=== PATIENT | male | born 1985 | race Caucasian/White ===

== ENCOUNTER 2016-08-24 16:14 | Inpatient (IN) | payer OTHER ==
--- NOTE | ~2016-08-24 | PN ---
Unit #: [id number] #: [id number] Patient: ULICES MALLOY [id number] [facility] [address] [place] [address] [id number] I MR#: [id number] NAME: ULICES MALLOY ROOM: P208 Age: 31 Sex: M Admission Date: 08/24/2016 : 1985 Attending Physician: Christy Lewis M.D. Admitting Physician: Madison Montana PROGRESS NOTES DATE OF SERVICE: 08/27/2016 SUBJECTIVE Mr. Malloy is a 31-year-old white male, who was seen today and chart was reviewed, and the case was discussed with the staff. He has been anxious and withdrawn and rather seclusive to himself. Meanwhile, he has been cooperative with the treatment recommendations and has been taking the medications and tolerating them . MENTAL STATUS EXAMINATION Young white male, who was casually dressed with fair personal hygiene, appears to be in no acute distress or discomfort. He was awake and alert on interaction with intact orientation. His mood was anxious with a congruent affect. He denies any suicidal or homicidal ideation. His insight and judgment remain slightly impaired. TREATMENT PLAN 1. treatment protocol. We will monitor his response to the medications and make further adjustments as needed. 2. We will continue to follow up. Dictated by... Madison Montana/darren TD: 08/27/2016 13:34 JOB #: [id number] [facility] PROGRESS NOTES Page 1 of 1 X Christy Lewis MD PROGRESS NOTE
--- NOTE | ~2016-08-24 | PN ---
Unit #: [id number] #: [id number] Patient: ULICES MALLOY [id number] [facility] [address] [place] [address] [id number] MR#: [id number] NAME: ULICES MALLOY ROOM: P208 Age: 31 Sex: M Admission Date: 08/24/2016 : 1985 Attending Physician: Christy Lewis M.D. Admitting Physician: Madison [place] NOTES DATE OF SERVICE: 08/26/2016 SUBJECTIVE Mr. Malloy is a 31-year-old white male who was seen today and chart was reviewed, and the case was discussed with the staff. He has been anxious and withdrawn and rather seclusive to himself. Meanwhile, he has been cooperative with the treatment recommendations and has been taking the medications and tolerating them fairly well. MENTAL STATUS EXAMINATION Young white male, who was casually dressed with fair personal hygiene, appears to be in no acute distress or discomfort. He was awake and alert on interaction with intact orientation. His mood was anxious with a congruent affect. He denies any suicidal or homicidal ideation. His insight and judgment remain slightly impaired. TREATMENT PLAN We will continue him on his treatment protocol. We will monitor his response to medications and make further adjustments as needed. Dictated by... Madison Montana/marquisl TD: 08/28/2016 02:54 JOB #: [id number] [facility] PROGRESS NOTES Page 1 of 1 X Christy Lewis MD PROGRESS NOTE
--- NOTE | ~2016-08-24 | PN ---
Unit #: [id number] #: [id number] Patient: ULICES MALLOY [id number] [facility] [address] [place] [address] [id number] I MR#: [id number] NAME: ULICES MALLOY ROOM: P208 Age: 31 Sex: M Admission Date: 08/24/2016 : 1985 Attending Physician: Christy Lewis M.D. Admitting Physician: Christy Lewis M.D. Primary Care Physician: Primary Care Physician Ronit EDWARDS PROGRESS NOTES DATE August 29, 2016 DISCUSSION Mr. Malloy is a 31-year-old white male, who was seen today and chart was reviewed and the case was discussed with the staff. He has been doing fairly well and appears to be coming out of the detox without any complications, but still being anxious and withdrawn, unkept, disheveled, and rather seclusive to himself. However, he has been cooperative with the treatment recommendations and he has been taking the medications and tolerating them fairly well with no reported side effects. MENTAL STATUS EXAMINATION Young white male, who was casually dressed with fair personal hygiene and appears to be in no acute distress or discomfort. He was awake and alert on interaction with intact orientation. His mood is anxious with a congruent affect. He denies any suicidal or homicidal ideations. His insight and judgment remain slightly impaired. TREATMENT PLAN 1. We will continue him on his current treatment protocol, and will monitor his response to the medications, and make further adjustments as needed. 2. We will continue to followup. Dictated by... Madison Montana/lien TD: 08/30/2016 10:39 JOB #: [id number] Unit #: [id number] #: [id number] Patient: ULICES MALLOY PROGRESS NOTES Page 1 of 1 X Christy Lewis MD PROGRESS NOTE
--- NOTE | ~2016-08-24 | PN ---
Unit #: [id number] #: [id number] Patient: ULICES MALLOY [id number] [facility] [address] [place] [address] [id number] I MR#: [id number] NAME: ULICES MALLOY ROOM: P208 Age: 31 Sex: M Admission Date: 08/24/2016 : 1985 Attending Physician: Christy Lewis M.D. Admitting Physician: Christy Lewis M.D. Primary Care Physician: Primary Care Physician Ronit EDWARDS PROGRESS NOTES DATE 08/28/2016 DISCUSSION Mr. Malloy is a 31-year-old, white male who was seen today and chart was reviewed and case was discussed with the staff. He has been anxious, withdrawn and rather seclusive to himself. Meanwhile, he has been cooperative with treatment recommendations. He has been taking medications and tolerating them fairly well. MENTAL STATUS EXAM Young white male who was casually dressed with fair personal hygiene, appears to be in no acute distress or discomfort. He was awake and alert on interaction with intact orientation. His mood was anxious with congruent affect. He denies any suicidal or homicidal ideation. His insight and judgement remains slightly impaired. TREATMENT PLAN 1. We will continue him on his current medications and treatment protocol. We will monitor his response to the medication and make further adjustments as needed. 2. We will continue to follow up. Dictated by... Madison Montana/jules TD: 08/29/2016 21:44 JOB #: [id number] Unit #: [id number] #: [id number] Patient: ULICES MALLOY PROGRESS NOTES Page 1 of 1 X Christy Lewis MD PROGRESS NOTE
--- NOTE | ~2016-08-24 | DS ---
Unit #: [id number] #: [id number] [facility]: [facility]ALL[facility] [id number] [facility] [address] [place] [address] [id number] I MR#: [id number] NAME: ULICES MALLOY ROOM: P208 Age: 31 Sex: M Admission Date: 08/24/2016 : 1985 Discharge Date: 08/30/2016 Attending Physician: Christy Lewis M.D. Primary Care Physician: Primary Care Physician No DISCHARGE SUMMARY IDENTIFYING DATA Mr. Malloy is a 31-year-old single white male, who is a resident of [place], [place] and is known to us from previous encounter and was self-referred to the hospital. DISCHARGE DIAGNOSES Psychiatric: Opioid dependence, moderate and acute withdrawals; opioid-induced mood disorder. Medical: None. Stressors: Moderate psychosocial stressors. HISTORY OF PRESENT ILLNESS Please see initial psychiatric evaluation for details. PAST PSYCHIATRIC HISTORY Please see initial psychiatric evaluation for details. PAST MEDICAL HISTORY Please see initial psychiatric evaluation for details. HOSPITAL COURSE The patient was admitted to the adult chemical dependency unit at [facility] and was oriented to the hospital environment. Routine p.r.n. medications were initiated and started back on his home medications and was closely monitored. He was taking the medications regularly and was tolerating them fairly well and was able to show a decent therapeutic response and as such, it was decided that he will be discharged home and will continue treatment on an outpatient basis. DISCHARGE MEDICATIONS None. DISCHARGE CONDITION Stable. PROGNOSIS Fair. Dictated by... Madison Montana/marquisl Unit #: [id number] #: [id number] Patient: ULICES MALLOY TD: 08/30/2016 07:14 JOB #: [id number] DISCHARGE SUMMARY Page 1 of 1 X Christy Lewis MD X DISCHARGE SUMMARY
--- NOTE | ~2016-08-24 | PA ---
Unit #: [id number] #: [id number] Patient: [facility]ALL[facility] [id number] [facility] [address] [place] [address] [id number] I MR#: [id number] NAME: ULICES MALLOY ROOM: P208 Age: 31 Sex: M Admission Date: 08/24/2016 : 1985 Date of Assessment: 08/25/2016 Attending Physician: Christy Lewis M.D. Admitting Physician: Christy Lewis M.D. Primary Care Physician: Primary Care Physician No PSYCHIATRIC ASSESSMENT DATE OF SERVICE 08/25/2016. IDENTIFYING DATA Mr. Malloy is a 31-year-old, single, white male, who is a resident of [place], [place] and is known to us from previous encounter, and was self-referred to the hospital. CHIEF COMPLAINT "I'm coming in for assessment for detox." HISTORY OF PRESENT ILLNESS Mr. Malloy is a 31-year-old white male with a history of mood disorder and opioid dependence, who brought himself back and on presentation was seen to be in acute opioid withdrawal with a COWS of 19 and he stated that he is using heroin on a daily basis, approximately a gram a day by snorting it. He reported the last use was 36 hours ago. He does report increasing depression, anxiety, irritability, restlessness, feelings of hopelessness and helplessness, and that he has suicidal ideations, but denies any intent or plan. SUBSTANCE ABUSE HISTORY The patient reports history of experimentation, abuse of alcohol, cannabis, and currently opioids, particularly heroin has been his drug of choice and reports that he has been using up to a gram of heroin a day by snorting it. PAST PSYCHIATRIC HISTORY The patient has had a history of inpatient chemical dependency and psychiatric treatment at [facility] and review of the medical records indicate that currently he is not active in any treatment program, is not seeing a psychiatrist, and not taking any psychotropic medications. PAST MEDICAL HISTORY No acute or chronic medical illnesses. ALLERGIES No known medication allergies. CURRENT MEDICATIONS None. PERSONAL AND SOCIAL HISTORY Unit #: [id number] #: [id number] Patient: ULICES MALLOY A 31-year-old white male, who reports that he is single, unemployed, and has been living with a roommate and has poor social support system. MENTAL STATUS EXAMINATION Young white male, who was casually dressed with a fair personal hygiene, appears to be in no acute distress or discomfort. He was awake and alert on interaction with intact orientation to time, place, and person. His mood was anxious and depressed with a congruent affect. His speech was slow and goal directed. He denies any suicidal or homicidal ideations and also denies any auditory or visual hallucinations. His insight and judgment remain slightly impaired. DIAGNOSTIC IMPRESSION Psychiatric: Opioid dependence, moderate and acute withdrawals; opioid-induced mood disorder. Medical: None. Stressors: Moderate psychosocial stressors. TREATMENT PLAN 1. The patient has presented with a history of substance abuse and mood disorder, and has been decompensating and will need inpatient hospitalization for detoxification, safety, and stabilization. We will start him on detox protocol. We will closely monitor for any worsening withdrawal symptoms. 2. Supportive therapy was provided to the patient. 3. Safe, structured, and nourishing environment will be provided. ESTIMATED LENGTH OF STAY 4 to 5 days. ABILITY TO HELP SELF Limited. WILLINGNESS TO HELP SELF The patient appears to be willing to help self. STRENGTHS 1. Communicative. 2. Cooperative. PROBLEMS 1. Chronic dysphoric symptoms. 2. Chronic chemical dependency. 3. Poor social support system. DISCHARGE CRITERIA This will be contingent upon the patient's ability to go through detox without having any significant withdrawal symptoms as well as his ability to stay safe to himself, particularly after discharge from the hospital. Dictated by... Christy Lewis M.D. [facility]/darren Unit #: [id number] #: [id number] Patient: ULICES MALLOY TD: 08/25/2016 07:23 JOB #: [id number] PSYCHIATRIC ASSESSMENT Page 1 of 1 X Christy Lewis MD PSYCHIATRIC ASSESSMENT
--- NOTE | ~2016-08-24 | HP ---
Unit #: [id number] #: [id number] Patient: FELIX MALLOY [id number] [place] [address] [id number] MR#: [id number] NAME: FELIX MALLOY ROOM: P208 Age: 31 Sex: M Admission Date: 08/24/2016 : 1985 Attending Physician: Christy Lewis M.D. Admitting Physician: Christy Lewis M.D. Primary Care Physician: Primary Care Physician No HISTORY AND PHYSICAL HISTORY OF PRESENT ILLNESS Felix is a 31-year-old admitted to [address] [place] [address] because of his continued drug use. PAST MEDICAL HISTORY Long history of illicit substance abuse to include snorting heroin. PAST SURGICAL HISTORY Nothing reported. ALLERGIES No known drug allergies. SOCIAL HISTORY Smokes one pack per day. Denies alcohol. Admits to a history of illicit substance abuse to include heroin. FAMILY HISTORY Medically noncontributory. REVIEW OF SYSTEMS CONSTITUTIONAL: No fever or chills. HEENT: Denies any sore throat, ear pain or runny nose. CARDIOVASCULAR: Denies chest pain, irregular heart rhythm or palpitations. CHEST: Denies shortness of breath or cough. No hemoptysis. GASTROINTESTINAL: Denies nausea, vomiting, diarrhea or chronic constipation. ENDOCRINE: Denies history of increased thirst or urination. No recent significant weight loss or gain. GENITOURINARY: Denies dysuria, frequency, or hematuria. SKIN: Denies any rashes. HEMATOLOGIC: Denies history of increased bleeding or bruising. MUSCULOSKELETAL: Denies any hot, swollen joints. No generalized muscle pain. NEUROLOGIC: Denies problems with vision or speech. No frequent, severe headaches. No numbness, tingling or weakness in any extremities. Denies loss of bladder or bowel control. CURRENT MEDICATIONS Detox protocol. PHYSICAL EXAMINATION GENERAL: Alert, well nourished. No apparent distress. Unit #: [id number] #: [id number] Patient: FELIX MALLOY VITAL SIGNS: Blood pressure 100/56, heart rate 80, respirations 16, and temperature 98.6. WEIGHT: 144. HEIGHT: 5 feet 7 inches. SKIN: Warm and dry without rash or lesion. HEENT: Normocephalic. TMs not viewed. Oral and nasal passages clear. Conjunctivae clear. PERRLA. EOMs intact. NECK: Supple without lymphadenopathy or thyromegaly. HEART: Regular rate and rhythm without murmur. LUNGS: Clear. ABDOMEN: Soft, nontender. : Not done. EXTREMITIES: No evidence of cyanosis, clubbing or edema. Moves all without focal deficit. NEUROLOGICAL: Grossly within normal limits. Cranial Nerves: II: Visual pollack are intact. III, IV AND : Extraocular movements are intact. Pupils are equal, round and reactive to light. V: Facial sensation is grossly normal. VII: Facial movements and expression are normal. VIII: Auditory acuity grossly intact. IX, X: Uvula is midline. Phonation is normal. XI: Patient shrugs shoulders and turns head normally. XII: Tongue protrudes in the midline. Sensory and Motor Function: Sensory and motor sensation is grossly normal. Motor: moves all extremities well. Coordination: Gait is normal. Deep Tendon Reflexes: Intact. IMPRESSION Psychiatric admission. RECOMMENDATIONS PSYCHIATRIC: Per psychiatrist. MEDICAL: I see no contraindication to participate in this facility's activities. MEDICAL PROGNOSIS Good. MEDICAL CONDITION Stable. Dictated by... Nurys Jaramillo P.A.-C. for Madison Lance/mali TD: 08/26/2016 06:53 JOB #: [id number] Unit #: [id number] #: [id number] Patient: FELIX MALLOY HISTORY AND PHYSICAL Page 1 of 1 X Nurys Jaramillo HISTORY AND PHYSICAL
[2016-08-25 09:50] LABS: BASOPHIL% 0.6 % (0-2.5); EOSINOPHIL# 0.1 X10e3 (0-0.7); EOSINOPHIL% 1.6 % (0.0-7.0); HEMATOCRIT 36.4 % (38.0-50.0); LYMPHOCYTE# 2.1 X10e3 (1.0-3.5); LYMPHOCYTE% 30.2 % (17.0-45.0); MEAN CELL VOLUME 92.4 FL (83-96); MEAN CORPUSCULAR HEMOGLOBIN 30.4 PG (28-34); MEAN PLATELET VOLUME 8.1 FL (6.5-11.5); MONOCYTE# 0.5 X10e3 (0-1.0); MONOCYTE% 7.7 % (3.0-12.0); NEUTROPHIL# 4.2 X10e3 (1.5-7.1); NEUTROPHIL% 59.9 % (40-75); PLATELET COUNT 235 X10e3 (140-420); RED BLOOD COUNT 3.94 X10e (3.90-5.60); RED CELL DISTRIBUTION WIDTH 13.4 % (11.0-15.5)
[2016-08-25 09:54] LABS: DIFF IND NO
[2016-08-25 09:57] LABS: URINE APPEARANCE CLEAR; URINE BILIRUBIN NEG (NEG); URINE BLOOD NEG (NEG); URINE COLOR DK YELLOW; URINE GLUCOSE NEG (NEG); URINE KETONE NEG (NEG); URINE LEUKOCYTE ESTERASE NEG (NEG); URINE NITRATE NEG (NEG); URINE PH 7.5 (5-8); URINE PROTEIN TRACE (NEG); URINE SPECIFIC GRAVITY 1.038 (1.003-1.035)
[2016-08-25 10:03] LABS: ALBUMIN SERUM 4.3 g/dL (3.5-5.0); BILIRUBIN,TOTAL 0.3 mg/dL (0.2-2.0); CALCIUM SERUM 9.4 mg/dL (8.4-10.2); CREATININE SERUM 0.8 mg/dL (0.6-1.4); GLOM FILT RATE Estimated 118.2 mL/min (>60); POTASSIUM 4.4 mmol/L (3.5-5.1); PROTEIN TOTAL SERUM 6.6 g/dL (6.0-8.3)
[2016-08-25 10:22] LABS: AMPHETAMINE NEG (NEG); BARBITURATES NEG (NEG); BENZODIAZEPINES NEG (NEG); COCAINE NEG (NEG); MARIJUANA POS (NEG); OPIATES POS (NEG); TRICYCLIC ANTIDEPRESSANTS NEG (NEG); U METHADONE NEG (NEG)
== END 2016-08-30 09:00 | disposition home or self-care (01) | DRG 897 ==
LOC: P2S 17:49
PROVIDERS: Psychiatry & Neurology Psychiatry
PROC: HZ2ZZZZ Detoxification Services for Substance Abuse Treatment (ICD-10-PCS; principal; 2016-08-24)
DX: F11.23 Opioid dependence with withdrawal (principal); F11.24 Opioid dependence with opioid-induced mood disorder; F17.210 Nicotine dependence, cigarettes, uncomplicated
CPT/HCPCS: 80053; 80307; 81003; 85025; 86592

== ENCOUNTER 2016-09-18 08:57 | Inpatient (IN) | payer OTHER ==
--- NOTE | ~2016-09-18 | PA ---
Unit #: [id number] #: [id number] Patient: ULICES MALLOY [id number] [facility] [address] [place] [address] [id number] I MR#: [id number] NAME: ULICES MALLOY. ROOM: P185 Age: 31 Sex: M Admission Date: 09/18/2016 : 1985 Date of Assessment: Attending Physician: Christy Lewis M.D. Admitting Physician: Christy Lewis M.D. Primary Care Physician: Primary Care Physician No PSYCHIATRIC ASSESSMENT IDENTIFYING DATA Mr. Malloy is a 31-year-old single white male, who is very well known to us from previous encounters and is a resident of [place], [place] and was self-referred to the hospital on a voluntary basis. CHIEF COMPLAINT "I want to detox from heroin." HISTORY OF PRESENT ILLNESS Mr. Malloy is a 31-year-old white male, who was recently discharged from my care 3 weeks ago and apparently relapsed and reports that he went to the emergency room and left and went home due to a long ambulance wait times and reports that he did not feel confident spending the night at home due to withdrawal symptoms as he was initially evaluated and recommended for inpatient treatment, but then he left the hospital and then decided to come back and reports that he did not use since he left the hospital, but that he was scared to spend the night home alone as he had significant withdrawal symptoms and a COWS of 16 and presented for assessment requesting detox from heroin. Reports at the last time [facility], he did not set himself up for success and the patient got back to work after being discharged. He had a check waiting on him, and he immediately relapsed. He reports that he has been using heroin since being discharged on a daily basis and has been using a gram a day and has been snorting heroin and denies any current intravenous drug abuse. He does report depression, anxiety, irritability, restlessness, feelings of hopelessness and helplessness, and suicidal ideation, but denies any intent or plan. SUBSTANCE ABUSE HISTORY The patient reports history of experimentation and abuse of alcohol and cannabis, but heroin has been his drug of choice as he reports that he has been using a gram of heroin by snorting a day. PAST PSYCHIATRIC HISTORY The patient has a history of multiple inpatient psychiatric hospitalizations for chemical dependency treatment at [facility], and review of the medical records indicates that currently he is not active in any treatment program, is not seeing a psychiatrist, and is not taking any psychotropic medications. PAST MEDICAL HISTORY No acute or chronic medical illnesses. Unit #: [id number] #: [id number] Patient: JOE MALLOYDenise Long ALLERGIES No known medication allergies. CURRENT MEDICATIONS None. PERSONAL AND SOCIAL HISTORY A 31-year-old white male, who reports that he is single and employed and lives with roommates and has fairly decent social support system. MENTAL STATUS EXAMINATION Young white male, who was casually dressed with fair personal hygiene, appears to be in no acute distress or discomfort. He was awake and alert on interaction with intact orientation to time, place, and person. His mood was anxious and depressed with a congruent affect. His speech was slow and restricted in content. His thought processes were disorganized with some looseness of associations and flight of ideas and suicidal ideations. His insight and judgment remain significantly impaired. DIAGNOSTIC IMPRESSION Psychiatric: Opioid dependence, moderate and acute withdrawals; opioid-induced mood disorder. Medical: None. Stressors: Moderate psychosocial stressors. TREATMENT PLAN 1. The patient has presented with history of substance abuse and mood disorder and has been decompensating and will need inpatient hospitalization for detoxification, safety, and stabilization. We will start him back on his home medications. We will adjust the medications and monitor response. 2. Supportive therapy was provided to the patient. 3. Safe, structured, and nourishing environment will be provided. ESTIMATED LENGTH OF STAY 5 to 7 days. ABILITY TO HELP SELF Limited. WILLINGNESS TO HELP SELF The patient appears to be willing to help self. STRENGTHS 1. Communicative. 2. Cooperative. PROBLEMS 1. Chronic dysphoric symptoms. 2. Chronic chemical dependency. 3. Poor social support system. DISCHARGE CRITERIA This will be contingent upon the patient's ability to go through detox without having any significant withdrawal symptoms as well as his ability to stay safe to himself, particularly after discharge from the hospital. Dictated by... Unit #: [id number] #: [id number] Patient: MELLISSAULICES M.D. [facility]/modl TD: 09/19/2016 07:16 JOB #: [id number] PSYCHIATRIC ASSESSMENT Page 1 of 1 X Christy Lewis MD PSYCHIATRIC ASSESSMENT
--- NOTE | ~2016-09-18 | HP ---
Unit #: [id number] #: [id number] Patient: FELIX MALLOY [id number] [place] [address] [id number] MR#: [id number] NAME: FELIX MALLOY. ROOM: P185 Age: 31 Sex: M Admission Date: 09/18/2016 : 1985 Attending Physician: Christy Lewis M.D. Admitting Physician: Christy Lewis M.D. Primary Care Physician: Primary Care Physician No HISTORY AND PHYSICAL HISTORY OF PRESENT ILLNESS Felix is a 31 year old admitted to [facility] because of his continued drug use. The patient was seen and H and P dated 08/25/2016 was reviewed. This is current. No changes except he has mashed his right thumb nail 5 days prior to admission. IMPRESSION 1. Continue drug use. 2. Contusion to his right thumb sustained a number of days prior to this admission. RECOMMENDATIONS PSYCHIATRIC: Per psychiatrist. MEDICAL: I see no contraindications to participate in this facility's activities. Please see H and P dated 08/25/2016 for complete history and physical exam. Dictated by... Nurys Jaramillo P.A.-C. for Madison Lance/mali TD: 09/20/2016 07:48 JOB #: [id number] HISTORY AND PHYSICAL Page 1 of 1 X Nurys Jaramillo X HISTORY AND PHYSICAL
--- NOTE | ~2016-09-18 | PN ---
Unit #: [id number] #: [id number] Patient: ULICES MALLOY [id number] [facility] [address] [place] [address] [id number] MR#: [id number] NAME: ULICES MALLOY. ROOM: P185 Age: 31 Sex: M Admission Date: 09/18/2016 : 1985 Attending Physician: Christy Lewis M.D. Admitting Physician: Christy Lewis M.D. Primary Care Physician: Primary Care Physician Ronit EDWARDS PROGRESS NOTES DATE September 22, 2016 DISCUSSION Mr. Malloy is a 31-year-old white male, who was seen today and chart was reviewed and the case was discussed with the staff. He has been doing better and appears to be coming out of the detox without any complications and has been cooperative with the treatment recommendations and he has been taking the medications and tolerating them fairly well with no reported side effects. MENTAL STATUS EXAMINATION Young white male, who was casually dressed with fair personal hygiene and appears to be in no acute distress or discomfort. He was awake and alert on interaction with intact orientation. His mood is anxious with a congruent affect. He denies any suicidal or homicidal ideations. His insight and judgment remain slightly impaired. TREATMENT PLAN 1. We will continue him on his current medications and treatment protocol, and will monitor his response to the medications, and make further adjustments as needed. 2. We will continue to followup. Dictated by... Madison Montana/lien TD: 09/22/2016 11:43 JOB #: [id number] Unit #: [id number] #: [id number] Patient: ULICES MALLOY [facility] PROGRESS NOTES Page 1 of 1 X Christy Lewis MD PROGRESS NOTE
--- NOTE | ~2016-09-18 | DS ---
Unit #: [id number] #: [id number] Patient: ULICES MALLOY [id number] [facility] [address] [place] [address] [id number] MR#: [id number] NAME: ULICES MALLOY. ROOM: P185 Age: 31 Sex: M Admission Date: 09/18/2016 : 1985 Discharge Date: 09/23/2016 Attending Physician: Christy Lewis M.D. Primary Care Physician: Primary Care Physician No DISCHARGE SUMMARY IDENTIFYING DATA Mr. Malloy is a 31-year-old white male with history of mood disorder and substance abuse, who was self-referred to the hospital. DISCHARGE DIAGNOSES Psychiatric: Opioid dependence, moderate and acute withdrawals; opioid-induced mood disorder. Medical: None. Stressors: Moderate psychosocial stressors. HISTORY OF PRESENT ILLNESS Please see initial psychiatric evaluation for details. PAST PSYCHIATRIC HISTORY Please see initial psychiatric evaluation for details. PAST MEDICAL HISTORY Please see initial psychiatric evaluation for details. HOSPITAL COURSE The patient was admitted to the adult chemical dependency unit at [facility] and was oriented to the hospital environment. Routine p.r.n. medications were initiated, and he was started on the opioid detox protocol and was closely monitored. He was taking the medications regularly and is tolerating them fairly well and was able to come out of the detox without any complications and was willing to continue treatment on an outpatient basis and as such, it was decided that he will be kept on his current medications. We will be discharged home and will continue treatment on an outpatient basis. DISCHARGE CONDITION Stable. PROGNOSIS Fair. Dictated by... Madison Montana/darren TD: 10/24/2016 13:39 Unit #: [id number] #: [id number] Patient: ULICES MALLOY JOB #: [id number] DISCHARGE SUMMARY Page 1 of 1 X Christy Lewis MD X DISCHARGE SUMMARY
--- NOTE | ~2016-09-18 | PN ---
Unit #: [id number] #: [id number] Patient: ULICES MALLOY [id number] [facility] [address] [place] [address] [id number] I MR#: [id number] NAME: ULICES MALLOY. ROOM: P185 Age: 31 Sex: M Admission Date: 09/18/2016 : 1985 Attending Physician: Christy Lewis M.D. Admitting Physician: Christy Lewis M.D. Primary Care Physician: Primary Care Physician Ronit EDWARDS PROGRESS NOTES DATE 09/20/2016 DISCUSSION Mr. Malloy is a 31-year-old, white male who was seen today and chart was reviewed and case was discussed with the staff. He has been anxious, withdrawn, depressed and rather seclusive to himself and appears to be in some distress and discomfort with compromised personal hygiene and ability to report some activities of daily living. Meanwhile, he has been taking medications and tolerating them fairly well with no reported side effects. MENTAL STATUS EXAM Young white male who was casually dressed with fair personal hygiene, appears to be in no acute distress or discomfort. He was awake and alert on interaction with intact orientation. His mood was anxious with congruent affect. He denies any suicidal or homicidal ideation. His insight and judgement remains slightly impaired. TREATMENT PLAN 1. We will continue him on his current medications and treatment protocol. We will monitor his response to medication and make further adjustments as needed. 2. We will continue to follow up. Dictated by... Madison Montana/jules TD: 09/21/2016 00:48 JOB #: [id number] Unit #: [id number] #: [id number] Patient: ULICES MALLOY [facility] PROGRESS NOTES Page 1 of 1 X Christy Lewis MD PROGRESS NOTE
--- NOTE | ~2016-09-18 | PN ---
Unit #: [id number] #: [id number] Patient: ULICES MALLOY [id number] [facility] [address] [place] [address] [id number] I MR#: [id number] NAME: ULICES MALLOY ROOM: P185 Age: 31 Sex: M Admission Date: 09/18/2016 : 1985 Attending Physician: Christy Lewis M.D. Admitting Physician: Christy Lewis M.D. Primary Care Physician: Primary Care Physician Ronit MELENDEZ NOTES DATE OF SERVICE: 09/21/2016 SUBJECTIVE Mr. Malloy is a 31-year-old white male who was seen today and chart was reviewed and case was discussed with the staff. He has been anxious, withdrawn, and rather seclusive to himself, but reports feeling somewhat better and has been taking the medications and tolerating them fairly well with no reported side effects. MENTAL STATUS EXAMINATION Young white male who was casually dressed with fair personal hygiene, appears to be in no acute distress or discomfort. He was awake and alert on interaction with intact orientation. His mood was anxious with a congruent affect. He denies any suicidal or homicidal ideations. His insight and judgment remain slightly impaired. TREATMENT PLAN 1. We will continue him on his current treatment protocol. We will monitor his response to the medications and make further adjustments as needed. 2. We will continue to follow up. Dictated by... Madison Montana/darren TD: 09/22/2016 01:07 JOB #: [id number] [facility] MELENDEZ NOTES Page 1 of 1 X Christy Lewis MD X PROGRESS NOTE
== END 2016-09-23 08:55 | disposition home or self-care (01) | DRG 897 ==
LOC: P1E 22:48
PROC: HZ2ZZZZ Detoxification Services for Substance Abuse Treatment (ICD-10-PCS; principal; 2016-09-18)
DX: F11.23 Opioid dependence with withdrawal (principal); F11.24 Opioid dependence with opioid-induced mood disorder

== ENCOUNTER 2016-11-15 12:27 | Inpatient (IN) | payer OTHER ==
[~2016-11-15] VITALS: Ht 170.2 cm; Wt 62.6 kg
--- NOTE | ~2016-11-15 | PA ---
Unit #: [id number] #: [id number] Patient: ULICES MALLOY [id number] [facility] [address] [place] [address] [id number] I MR#: [id number] NAME: ULICES MALLOY ROOM: P212 Age: 31 Sex: M Admission Date: 11/15/2016 : 1985 Date of Assessment: Attending Physician: Christy Lewis M.D. Admitting Physician: Christy Lewis M.D. PSYCHIATRIC ASSESSMENT DATE OF SERVICE 11/15/2016. IDENTIFYING DATA Mr. Malloy is a 31-year-old single white male, who is a resident of [place], [place], and is known to us from previous encounter and was self-referred to the hospital on a voluntary basis. CHIEF COMPLAINT "I relapsed and I'm needing detox." HISTORY OF PRESENT ILLNESS Mr. Malloy is a 31-year-old white male with long history of opioid dependence, who is known to me from previous encounter and was self-referred to the hospital reporting that he has been detoxed and had a COWS of 15 indicating significant opioid-related withdrawals as he stated that he has been feeling achy and nauseous and has diarrhea and vomiting with goose bumps, runny nose, and disturbed sleep, and being restless and has used Suboxone 36 hours ago and also reports using 0.5 to 1 g of heroin a day via snorting it and reports he would use Suboxone when trying to come down on his own. He reports that he has lost his job and has been having significant consequences because of his addiction and does report increasing depression, anxiety, irritability, restlessness, feelings of hopelessness and helplessness, and wishes something would kill him like a bus as he stated "I don't want to do it myself." He reports he has been tired of his substance abuse issues and feeling hopeless about ever being clean and sober, "I would rather be than deal with substance dependence." As such, he was seen to be a danger to self and therefore recommendation for inpatient level of care for safety and stabilization was made and the patient was transferred to us. SUBSTANCE ABUSE HISTORY The patient reports history of alcohol, cannabis, opioids, and methamphetamine abuse. PAST PSYCHIATRIC HISTORY The patient has a history of multiple inpatient psychiatric hospitalizations at [facility] and other facilities and has a history of poor compliance with treatment recommendations and has been diagnosed and treated for mood disorder and substance abuse and dependence. PAST MEDICAL HISTORY No acute or chronic medical illnesses. Unit #: [id number] #: [id number] Patient: ULICES MALLOY ALLERGIES No known medication allergies. CURRENT MEDICATIONS None. PERSONAL AND SOCIAL HISTORY A 31-year-old white male, who reports that he is single, unemployed, and lives with a roommate and has poor social support system. MENTAL STATUS EXAMINATION Young white male, who was casually dressed with fair personal hygiene, appears to be in no acute distress or discomfort. He was awake and alert on interaction with intact orientation to time, place, and person. His mood was anxious and depressed with a congruent affect. His speech was slow and restricted in content. His thought processes were disorganized with some looseness of associations and paranoid ideations and suicidal ideations. His insight and judgment remain significantly impaired. DIAGNOSTIC IMPRESSION Psychiatric: Opioid dependence, moderate, in acute withdrawals and opioid-induced mood disorder. Medical: None. Stressors: Moderate psychosocial stressors. TREATMENT PLAN 1. The patient has presented with a history of substance abuse and mood disorder and has been decompensating and will need inpatient hospitalization for detoxification, safety, and stabilization and we will start him on detox protocol. We will closely monitor for any worsening withdrawal symptoms. 2. Supportive therapy was provided to the patient. 3. Safe, structured, and nourishing environment will be provided. ESTIMATED LENGTH OF STAY 4 to 5 days. ABILITY TO HELP SELF Limited. WILLINGNESS TO HELP SELF The patient appears to be willing to help self. STRENGTHS 1. Communicative. 2. Cooperative. PROBLEMS 1. Chronic dysphoric symptoms. 2. Chronic chemical dependency. 3. Poor social support system. DISCHARGE CRITERIA This will be contingent upon the patient's ability to go through detox without having any significant withdrawal symptoms as well as his ability to stay safe to himself, particularly after discharge from the hospital. Unit #: [id number] #: [id number] Patient: ULICES MALLOY Dictated by..Madison Ortega/darren TD: 11/16/2016 13:58 JOB #: [id number] PSYCHIATRIC ASSESSMENT Page 1 of 1 X Christy Lewis MD PSYCHIATRIC ASSESSMENT
--- NOTE | ~2016-11-15 | HP ---
Unit #: [id number] #: [id number] Patient: ULICES MALLOY [id number] [facility] [address] [place] [address] [id number] I MR#: [id number] NAME: ULICES MALLOY. ROOM: P212 Age: 31 Sex: M Admission Date: 11/15/2016 : 1985 Attending Physician: Christy Lewis M.D. Admitting Physician: Christy Lewis M.D. Primary Care Physician: Generic Doctor Not In System HISTORY AND PHYSICAL HISTORY OF PRESENT ILLNESS The patient is a 31-year-old man, who [facility] his continued use of heroin and Suboxone. PAST MEDICAL HISTORY Substance abuse including snorting heroin. PAST SURGICAL HISTORY None. ALLERGIES No known allergies. HOME MEDICATIONS None. SOCIAL HISTORY Tobaccoism and illicit substance abuse. FAMILY HISTORY Medically noncontributory. REVIEW OF SYSTEMS CONSTITUTIONAL: Denies fever or chills. HEENT: Denies any sore throat, ear pain or runny nose. CARDIOVASCULAR: Denies chest pain, irregular heart rhythm or palpitations. CHEST: Denies shortness of breath or cough. No hemoptysis. GASTROINTESTINAL: Endorses nausea, vomiting, diarrhea, denies chronic constipation. ENDOCRINE: Denies history of increased thirst or urination. No recent significant weight loss or gain. GENITOURINARY: Denies dysuria, frequency, or hematuria. SKIN: Denies any rashes. HEMATOLOGIC: Denies history of increased bleeding or bruising. MUSCULOSKELETAL: Denies any hot, swollen joints. No generalized muscle pain. NEUROLOGIC: Denies problems with vision or speech. No frequent, severe headaches. No numbness, tingling or weakness in any extremities. Denies loss of bladder or bowel control. PHYSICAL EXAMINATION GENERAL APPEARANCE: The patient is awake, alert, and in no acute distress. Unit #: [id number] #: [id number] Patient: ULICES MALLOY VITAL SIGNS: Temperature 98.7, heart rate 75, respirations 16, and blood pressure 121/80. He is 5 feet 7 inches and weighs 138 pounds. HEENT: Head: Atraumatic and normocephalic. Pupils are equal, round, and reactive. Extraocular movements are intact. No discharge from ears or nares. NECK: Supple. Trachea is midline. HEART: Regular rate and rhythm. LUNGS: Clear. ABDOMEN: Soft, nontender, and nondistended. : Not done. SKIN: Warm, dry, and no unusual rashes or lesions. EXTREMITIES: No clubbing, edema, or cyanosis. NEUROLOGIC: Cranial Nerves: II through XII: Intact. No focal deficits. Coordination: Gait is normal. Deep Tendon Reflexes: Intact. IMPRESSION 1. Psychiatric admission. 2. Detox. RECOMMENDATIONS Psychiatric, will be per psychiatry. MEDICAL I see no contraindications to participating in facility's activities. MEDICAL PROGNOSIS Fair. MEDICAL CONDITION Stable. Dictated by... Maria Alejandra Pfeiffer A.P.R.N. for Francisco J Neves M.D. AM/lien TD: 11/16/2016 09:12 JOB #: [id number] HISTORY AND PHYSICAL Page 1 of 1 X Maria Alejandra Pfeiffer [employer]AC[employer] MEMBER X HISTORY AND PHYSICAL
--- NOTE | ~2016-11-15 | PN ---
Unit #: [id number] #: [id number] Patient: ULICES MALLOY [id number] [facility] [address] [place] [address] [id number] I MR#: [id number] NAME: ULICES MALLOY ROOM: P212 Age: 31 Sex: M Admission Date: 11/15/2016 : 1985 Attending Physician: Christy Lewis M.D. Admitting Physician: Christy Lewis M.D. Primary Care Physician: Generic Doctor Not In System [facility] PROGRESS NOTES DATE OF SERVICE: 11/19/2016 SUBJECTIVE Mr. Malloy is a 31-year-old white male, who was seen today and chart was reviewed, and case was discussed with the staff. He has been doing much better leave the hospital tomorrow. He is willing to continue treatment on outpatient basis. MENTAL STATUS EXAMINATION Young white male who was casually dressed with fair personal hygiene, and appears to be in no acute distress or discomfort. He was awake and alert with intact orientation. His mood was anxious with a congruent affect. He denies any suicidal or homicidal ideation. His insight and judgment remain slightly impaired. TREATMENT PLAN 1. We will continue on his current medications and treatment protocol. We will monitor his response to medications and make further adjustments as needed. 2. We will continue to follow up. Dictated by... Madison Montana/marquisl TD: 11/21/2016 01:23 JOB #: [id number] [facility] PROGRESS NOTES Page 1 of 1 X Christy Lewis MD PROGRESS NOTE
--- NOTE | ~2016-11-15 | PN ---
Unit #: [id number] #: [id number] Patient: ULICES MALLOY [id number] [facility] [address] [place] [address] [id number] MR#: [id number] NAME: ULICES MALLOY. ROOM: P212 Age: 31 Sex: M Admission Date: 11/15/2016 : 1985 Attending Physician: Christy Lewis M.D. Admitting Physician: Christy Lewis M.D. Primary Care Physician: Generic Doctor Not In System [facility] PROGRESS NOTES DATE November 16, 2016 DISCUSSION Mr. Malloy is a 31-year-old white male, who was seen today and chart was reviewed and the case was discussed with the staff. He has been anxious, withdrawn, and rather seclusive to himself. Meanwhile, he has been cooperative with the treatment recommendations and he has been taking the medications and tolerating them fairly well with no reported side effects. MENTAL STATUS EXAMINATION Young white male, who was casually dressed with fair personal hygiene and appears to be in no acute distress or discomfort. He was awake and alert on interaction with intact orientation. His mood is anxious with a congruent affect. He denies any suicidal or homicidal ideations. His insight and judgment remain slightly impaired. TREATMENT PLAN 1. We will continue him on his current medications and treatment protocol, and will monitor his response to the medications, and make further adjustments as needed. 2. We will continue to followup. Dictated by... Madison Montana/lien TD: 11/16/2016 13:01 JOB #: [id number] Unit #: [id number] #: [id number] Patient: ULICES MALLOY [facility] PROGRESS NOTES Page 1 of 1 X Christy Lewis MD PROGRESS NOTE
--- NOTE | ~2016-11-15 | PN ---
Unit #: [id number] #: [id number] Patient: ULICES MALLOY [id number] [facility] [address] [place] [address] [id number] I MR#: [id number] NAME: ULICES MALLOY. ROOM: P212 Age: 31 Sex: M Admission Date: 11/15/2016 : 1985 Attending Physician: Christy Lewis M.D. Admitting Physician: Madison Montana PROGRESS NOTES DATE OF SERVICE: 11/18/2016 SUBJECTIVE Mr. Malloy is a 51-year-old white male, who is seen today and chart was reviewed, and case was discussed with the staff. He has been doing fairly well, though has been anxious and withdrawn, rather seclusive to himself. Meanwhile, he has been cooperative with treatment recommendations and has been taking the medications and tolerating them fairly well with no reported side effects. MENTAL STATUS EXAMINATION Young white male, who was casually dressed with a fair personal hygiene, appears to be in no acute distress or discomfort. He was awake and alert on interaction with intact orientation. His mood was anxious with a congruent affect. His speech was slow and goal directed. He denies any suicidal or homicidal ideation. His insight and judgment remain slightly impaired. TREATMENT PLAN 1. We will continue on his current medications and treatment protocol. We will monitor his response to medications and make further adjustments as needed. 2. We will continue to follow up. Dictated by... Madison Montana/darren TD: 11/19/2016 05:07 JOB #: [id number] Unit #: [id number] #: [id number] Patient: ULICES MALLOY [facility] PROGRESS NOTES Page 1 of 1 X Christy Lewis MD PROGRESS NOTE
--- NOTE | ~2016-11-15 | DS ---
Unit #: [id number] #: [id number] Patient: ULICES MALLOY [id number] [facility] [address] [place] [address] [id number] I MR#: [id number] NAME: ULICES MALLOY. ROOM: P212 Age: 31 Sex: M Admission Date: 11/15/2016 : 1985 Discharge Date: 11/20/2016 Attending Physician: Christy Lewis M.D. Primary Care Physician: Generic Doctor Not In System DISCHARGE SUMMARY IDENTIFYING DATA Mr. Malloy is a 31-year-old single white male, who is a resident of [place], [place], and is known to us from previous encounters and was recently discharged from my care and was self-referred back to the hospital. DISCHARGE DIAGNOSES Psychiatric: Opioid dependence, moderate in acute withdrawals; opioid-induced mood disorder. Medical: None. Stressors: Mild psychosocial stressors. HISTORY OF PRESENT ILLNESS Please see initial psychiatric evaluation for details. PAST PSYCHIATRIC HISTORY Please see initial psychiatric evaluation for details. PAST MEDICAL HISTORY Please see initial psychiatric evaluation for details. HOSPITAL COURSE The [facility] and was oriented to the hospital environment. Routine p.r.n. medications were initiated, and he was started on the detox protocol and was closely monitored. He was anxious, restless, rather withdrawn at beginning, though was polite and pleasant and cooperative and compliant with treatment recommendations and was taking the medications regularly and was tolerating them fairly well and was able to show a decent therapeutic response with improvement in depression and anxiety as he was denying any suicidal ideations, intent, or plan and was willing to continue treatment on an outpatient basis, it was decided that he will be discharged home and will continue treatment on an outpatient basis. DISCHARGE MEDICATIONS None. DISCHARGE CONDITION Stable. PROGNOSIS Fair. Unit #: [id number] #: [id number] Patient: ULICES MALLOY Dictated by... Madison Montana/marquisl TD: 11/20/2016 06:56 JOB #: [id number] DISCHARGE SUMMARY Page 1 of 1 X Christy Lewis MD DISCHARGE SUMMARY
--- NOTE | ~2016-11-15 | PN ---
Unit #: [id number] #: [id number] Patient: ULICES MALLOY [id number] [facility] [address] [place] [address] [id number] I MR#: [id number] NAME: ULICES MALLOY ROOM: P212 Age: 31 Sex: M Admission Date: 11/15/2016 : 1985 Attending Physician: Christy Lewis M.D. Admitting Physician: Christy Lewis M.D. Primary Care Physician: Generic Doctor Not In System [facility] PROGRESS NOTES DATE OF SERVICE 11/17/2016 DISCUSSION Mr. Malloy is a 31-year-old white male who was seen today. Chart was reviewed and case was discussed with the staff. He has been anxious, withdrawn, and seclusive to himself but has been polite and pleasant, cooperative with treatment recommendations and has been taking the medications and tolerating them fairly well with no reported side effects. MENTAL STATUS EXAMINATION Young white male who is casually dressed with fair personal hygiene, appears to be in no acute distress or discomfort. He was awake and alert on interaction with intact orientation. His mood is anxious with congruent affect. Speech is slow and goal-directed. He denies any suicidal or homicidal ideations. His insight and judgment remain slightly impaired. TREATMENT PLAN 1. We will continue him on his current treatment protocol. We will monitor his response and make further adjustments as needed. 2. We will continue to follow up. Dictated by... Christy Lewis M.D. IAA/bzg TD: 11/17/2016 10:09 JOB #: [id number] [facility] PROGRESS NOTES Page 1 of 1 X Christy Lewis MD X PROGRESS NOTE
[2016-11-16 09:39] LABS: BASOPHIL% 0.4 % (0-2.5); EOSINOPHIL# 0.1 X10e3 (0-0.7); HEMATOCRIT 40.2 % (38.0-50.0); HEMOGLOBIN 13.4 gm/dL (13.0-16.0); LYMPHOCYTE# 1.9 X10e3 (1.0-3.5); LYMPHOCYTE% 25.9 % (17.0-45.0); MEAN CELL VOLUME 91.1 FL (83-96); MEAN CORPUSCULAR HEMOGLOBIN 30.3 PG (28-34); MEAN CORPUSCULAR HGB CONC 33.2 g/dL (30-36); MEAN PLATELET VOLUME 8.3 FL (6.5-11.5); MONOCYTE# 0.3 X10e3 (0-1.0); MONOCYTE% 4.4 % (3.0-12.0); NEUTROPHIL# 4.9 X10e3 (1.5-7.1); NEUTROPHIL% 68.3 % (40-75); PLATELET COUNT 223 X10e3 (140-420); RED BLOOD COUNT 4.41 X10e (3.90-5.60); RED CELL DISTRIBUTION WIDTH 14.4 % (11.0-15.5); WHITE BLOOD COUNT 7.2 X10e3 (4.0-10.5)
[2016-11-16 09:45] LABS: DIFF IND NO
[2016-11-16 10:02] LABS: ALBUMIN SERUM 4.3 g/dL (3.5-5.0); BUN/CREATININE RATIO 21.11; CALCIUM SERUM 9.4 mg/dL (8.4-10.2); CREATININE SERUM 0.9 mg/dL (0.6-1.4); GLOM FILT RATE Estimated 112.6 mL/min (>60); POTASSIUM 4.4 mmol/L (3.5-5.1); PROTEIN TOTAL SERUM 6.6 g/dL (6.0-8.3)
[2016-11-17 09:48] LABS: URINE APPEARANCE CLEAR; URINE BILIRUBIN NEG (NEG); URINE BLOOD NEG (NEG); URINE COLOR YELLOW; URINE GLUCOSE NEG (NEG); URINE KETONE NEG (NEG); URINE LEUKOCYTE ESTERASE NEG (NEG); URINE NITRATE NEG (NEG); URINE PROTEIN NEG (NEG); URINE SPECIFIC GRAVITY 1.012 (1.003-1.035); URINE UROBILINOGEN 0.2 MG/DL (NEG)
[2016-11-17 10:15] LABS: AMPHETAMINE NEG (NEG); BARBITURATES NEG (NEG); BENZODIAZEPINES NEG (NEG); COCAINE NEG (NEG); MARIJUANA POS (NEG); OPIATES POS (NEG); TRICYCLIC ANTIDEPRESSANTS NEG (NEG); U METHADONE NEG (NEG)
== END 2016-11-20 10:28 | disposition home or self-care (01) | DRG 897 ==
LOC: P2S 16:29
PROVIDERS: Psychiatry & Neurology Psychiatry
PROC: HZ2ZZZZ Detoxification Services for Substance Abuse Treatment (ICD-10-PCS; principal; 2016-11-15)
DX: F11.23 Opioid dependence with withdrawal (principal); R45.851 Suicidal ideations; F11.24 Opioid dependence with opioid-induced mood disorder
CPT/HCPCS: 80053; 80307; 81003; 85025; 86592